=== PATIENT | male | born 1980 | race Caucasian/White ===

== ENCOUNTER 2017-04-27 10:23 | Emergency (ER) | payer SELFPAY ==
[~2017-04-27] VITALS: Ht 165.1 cm; Wt 66.0 kg
[~2017-04-27 10:23] MED LIST: ULTRAM50 MG PO; ZANTAC150 MG PO
[2017-04-27 14:50] LABS: HEMATOCRIT 45.7 % (38.0-50.0); HEMOGLOBIN 15.4 G/DL (12.5-16.6); MCH 30.9 PG (29.0-34.0); MCHC 33.7 G/DL (30.0-36.0); MCV 91.8 FL (86-99); PLATELET COUNT 374 K/uL (156-360); RBC DIS.WIDTH-CV 12.4 % (11.8-14.6); RED BLOOD COUNT 4.98 M/uL (4.00-5.50); WHITE BLOOD COUNT 8.9 K/uL (4.1-10.2)
[2017-04-27 15:07] LABS: CHLORIDE 107 mEq/L (99-109); POTASSIUM 4.3 mEq/L (3.7-5.4); SODIUM 139 mEq/L (136-147)
[2017-04-27 15:09] LABS: GLUCOSE 94 mg/dL (70-99)
[2017-04-27 15:13] LABS: GFR ESTIMATE (CALCULATED) > 59 mL/min/ (58.99-99999)
[2017-04-27] MEDS ORDERED: COLACE100 MG PO (15:13)
[2017-04-27] MEDS ORDERED: ANUSOL HC,ANUCO25 MG PR (15:13)
[2017-04-27 15:14] LABS: UREA NITROGEN (BUN) 12 mg/dL (9-23)
[2017-04-27 15:52] VITALS: BP 138/80
== END 2017-04-27 15:55 | disposition home or self-care (01) ==
LOC: EME 10:23
PROVIDERS: Emergency Medicine
DX: K62.5 Hemorrhage of anus and rectum (principal); F17.200 Nicotine dependence, unspecified, uncomplicated
CPT/HCPCS: 80048; 85027; 99281; 99284